=== PATIENT | female | born 1995 | race Two or more races ===

== ENCOUNTER 2018-02-25 07:40 | Inpatient (IN) | payer OTHER ==
[2018-02-25] MEDS ORDERED: OXYTOCIN 30 UNITS/LR 500 ML IV ×3 (09:00)
[2018-02-25] MEDS ORDERED: METHYLERGONOVINE 0.2 MG INJ IM (09:00)
[2018-02-25] MEDS ORDERED: LIDOCAINE 1% (MPF) 30 ML INJ INJ (09:00)
[2018-02-25] MEDS ORDERED: CARBOPROST 250 MCG INJ IM (09:00)
[2018-02-25] MEDS ORDERED: MISOPROSTOL 200 MCG TAB PR (09:00)
[2018-02-25] MEDS ORDERED: BUTORPHANOL 2 MG INJ IV (09:00)
[2018-02-25] MEDS ORDERED: IBUPROFEN 600 MG TAB PO (09:00)
[2018-02-25] MEDS: LACTATED RINGER'S 1,000 ML IV* ×3 (09:21→21:36)
[2018-02-25 09:37] LABS: ADD MAN DIFF? NO
[2018-02-25 10:06] LABS: WHITE BLOOD COUNT 8.3 10^3/ul (4.8-10.8)
[2018-02-25 10:06] LABS: BASOPHILS % 0.2 % (0.0-2.0); EOSINOPHILS # 0.1 10^3/ul (0.0-0.5); EOSINOPHILS % 0.6 % (0.0-7.0); HEMATOCRIT 37.1 % (37.0-47.0); LYMPHOCYTES # 1.8 10^3/ul (0.8-2.9); LYMPHOCYTES % 21.3 % (15.0-51.0); MEAN CORPUSCULAR VOLUME 85.5 fl (82.0-101.0); MEAN PLATELET VOLUME 12.1 fl (7.4-10.4); MONOCYTE # 0.8 10^3/ul (0.3-0.9); MONOCYTES % 10.1 % (0.0-11.0); NEUTROPHIL # 5.6 10^3/ul (1.6-7.5); PLATELET COUNT 191 10^3/UL (140-415); RED BLOOD COUNT 4.34 10^6/ul (4.20-5.40); RED CELL DISTRIBUTION WIDTH 13.6 % (11.5-14.5)
[2018-02-25 10:11] LABS: INR 0.98; PROTIME 13.1 Sec (11.9-14.9)
[2018-02-25 10:12] LABS: PARTIAL THROMBOPLASTIN TIME 32.9 Sec (25.0-35.0)
[2018-02-25] MEDS: DINOPROSTONE 10 MG VAG SUPP VAG (10:24)
[2018-02-25 10:37] LABS: HEPATITIS B SURFACE ANTIGEN NEGATIVE (NEGATIVE)
[2018-02-25 19:18] LABS: RAPID PLASMA REAGIN NONREACTIVE (NR)
[2018-02-25] MEDS ORDERED: ONDANSETRON 4 MG INJ IV (22:00)
[2018-02-25] MEDS ORDERED: EPHEDrine SULFATE 50 MG/5 ML SYG IV (22:00)
[2018-02-25] MEDS ORDERED: NALOXONE (0.4 MG/ML) INJ IV (22:00)
[2018-02-25] MEDS ORDERED: DIPHENHYDRAMINE 50 MG INJ IV (22:00)
[2018-02-26] MEDS: FENTAnyl 2MCG/ML-ROPIV 0.2% 100 ML BAG EPI (01:58)
[2018-02-26] MEDS: LACTATED RINGER'S 1,000 ML IV* ×2 (03:22→12:53)
[2018-02-26] MEDS ORDERED: MINERAL OIL LIGHT 10 ML VIAL TOP (04:35)
[2018-02-26] MEDS ORDERED: OXYTOCIN 30 UNITS/LR 500 ML IV (06:00)
[2018-02-26] MEDS ORDERED: METHYLERGONOVINE 0.2 MG INJ IM (06:00)
[2018-02-26] MEDS ORDERED: CARBOPROST 250 MCG INJ IM (06:00)
[2018-02-26] MEDS ORDERED: ONDANSETRON 4 MG TAB PO (06:00)
[2018-02-26] MEDS ORDERED: ZOLPIDEM 5 MG TAB PO (06:00)
[2018-02-26] MEDS ORDERED: HYDROCODONE/APAP (5/325) TAB PO ×2 (06:00)
[2018-02-26] MEDS ORDERED: DIPHENHYDRAMINE 25 MG CAP PO (06:00)
[2018-02-26] MEDS ORDERED: SENNA/DOCUSATE NA (8.6MG/50MG) TAB PO (06:00)
[2018-02-26] MEDS ORDERED: DIPHENHYDRAMINE 50 MG INJ IV (06:00)
[2018-02-26] MEDS ORDERED: ONDANSETRON 4 MG INJ IV (06:00)
[2018-02-26] MEDS ORDERED: ACETAMINOPHEN 325 MG TAB PO ×2 (06:00)
[2018-02-26] MEDS ORDERED: MAGNESIUM HYDROXIDE 30ML CUP PO (06:00)
[2018-02-26] MEDS ORDERED: MISOPROSTOL 200 MCG TAB PR (06:00)
[2018-02-26] MEDS: OXYTOCIN 30 UNITS/LR 500 ML IV ×2 (06:15)
[2018-02-26] MEDS: BENZOCAINE 20% 56 ML SPRAY TOP (10:49)
[2018-02-26] MEDS: DIBUCAINE 1% 30 GM OINT PR (10:50)
[2018-02-26] MEDS: LANOLIN 7 GM TUBE TOP (10:50)
[2018-02-26] MEDS: IBUPROFEN 800 MG TAB PO ×2 (12:46→18:12)
[2018-02-27] MEDS: IBUPROFEN 800 MG TAB PO ×5 (00:02→23:55)
[2018-02-27 09:02] LABS: ADD MAN DIFF? NO
[2018-02-27 09:10] LABS: BASOPHILS % 0.1 % (0.0-2.0); EOSINOPHILS # 0.1 10^3/ul (0.0-0.5); EOSINOPHILS % 0.8 % (0.0-7.0); HEMATOCRIT 37.5 % (37.0-47.0); HEMOGLOBIN 12.5 g/dl (12.0-16.0); LYMPHOCYTES # 1.9 10^3/ul (0.8-2.9); MEAN CORPUSCULAR HEMOGLOBIN 28.9 pg (29.0-33.0); MEAN CORPUSCULAR HGB CONC 33.3 g/dl (32.0-37.0); MEAN CORPUSCULAR VOLUME 86.8 fl (82.0-101.0); MEAN PLATELET VOLUME 11.7 fl (7.4-10.4); MONOCYTE # 0.9 10^3/ul (0.3-0.9); NEUTROPHIL # 6.6 10^3/ul (1.6-7.5); NEUTROPHILS % 69.5 % (39.0-77.0); PLATELET COUNT 166 10^3/UL (140-415); RED BLOOD COUNT 4.32 10^6/ul (4.20-5.40); RED CELL DISTRIBUTION WIDTH 13.9 % (11.5-14.5)
[2018-02-27 09:10] LABS: WHITE BLOOD COUNT 9.5 10^3/ul (4.8-10.8)
[2018-02-27 09:18] LABS: POSITIVE DIFF @See below
[2018-02-28] MEDS: IBUPROFEN 800 MG TAB PO ×2 (05:35→12:00)
[2018-02-28] MEDS: MEASLES,MUMPS,RUBELLA VACCINE INJ SC* (09:00)
[2018-02-28] MEDS: DIPHTH/TET/ACEL PERTUSS (ADULT) 0.5 ML VIAL IM* (09:00)
[2018-02-28] MEDS: VARICELLA VACCINE LIVE/PF 1,350 UNIT/0.5 ML ML SC* (09:00)
== END 2018-02-28 14:48 | disposition home or self-care (01) | DRG 775 ==
LOC: L-D 07:40 → PP1 02-26 08:10 → L-D 21:30
PROVIDERS: Obstetrics & Gynecology
PROC: 10D07Z6 Extraction of Products of Conception, Vacuum, Via Natural or Artificial Opening (ICD-10-PCS; principal; 2018-02-26)
PROC: 0KQM0ZZ Repair Perineum Muscle, Open Approach (ICD-10-PCS; 2018-02-26)
DX: O76 Abnormality in fetal heart rate and rhythm complicating labor and delivery (principal); O70.1 Second degree perineal laceration during delivery; Z3A.40 40 weeks gestation of pregnancy; Z37.0 Single live birth
CPT/HCPCS: 62319; 85025; 85610; 85730; 86592; 86850; 86900; 86901; 87340; 99464